=== PATIENT | male | born 1990 | race Caucasian/White ===

== ENCOUNTER 2018-08-26 01:33 | Emergency (ER) | payer SELFPAY ==
[~2018-08-26] VITALS: Ht 170.2 cm; Wt 77.1 kg
[2018-08-26 01:54] VITALS: BP 143/69
--- NOTE | 2018-08-26 03:58 | PHYS DOC ---
Adult General Chief Complaint Chief Complaint: PENIS PROBLEM HPI HPI Patient is a 28-year-old male who presents with complaint of painful ulceration to his penis for about the last 2 weeks. Patient does admit to unprotected sex. Patient states that the ulceration is not getting any better and he did a google search and was concerned about syphilis. He denies any fever, nausea or vomiting. He denies any painful urination and has had no urethral discharge. Review of Systems Review of Systems Constitutional: Denies fever or chills [] Respiratory: Denies cough or shortness of breath [] Cardiovascular: No additional information not addressed in HPI [] GI: Denies abdominal pain, nausea, vomiting or diarrhea [] : Denies dysuria or hematuria. Positive painful ulceration to penis [] Neurologic: Denies headache, focal weakness or sensory changes [] Current Medications Current Medications Current Medications Medications (Trade) Dose Ordered Sig/[place] Start Time Stop Time Status Last Admin Dose Admin Azithromycin (Zithromax) 1,000 mg 1X ONCE 08/26/18 03:30 08/26/18 03:31 DC Ceftriaxone Sodium (Rocephin Im) 250 mg 1X ONCE 08/26/18 03:30 08/26/18 03:31 DC Allergies Allergies Allergies Coded Allergies Type Severity Reaction Last Updated Verified No Known Drug Allergies 08/26/18 No Physical Exam Physical Exam Constitutional: Well developed, well nourished, no acute distress, non-toxic appearance. [] HENT: Normocephalic, atraumatic, bilateral external ears normal, oropharynx moist, no oral exudates, nose normal. [] Eyes: PERRLA, EOMI, conjunctiva normal, no discharge. [] Neck: Normal range of motion, no tenderness, supple, no stridor. [] Cardiovascular: Regular rate and rhythm[] Lungs & Thorax: Bilateral breath sounds clear to auscultation [] Abdomen: Bowel sounds normal, soft, no tenderness. [] : Inspection of penis demonstrates approximately 1 cm in diameter ulceration to the shaft of the penis at its base. Left groin demonstrates tender lymphadenopathy. [] Current Patient Data Lab Values Laboratory Tests Test 08/26/18 02:44 Treponema pallidum Antibody Nonreactive (Nonreactive) EKG EKG [] Radiology/Procedures Radiology/Procedures [] Course & Med Decision Making Course & Med Decision Making Pertinent Labs and Imaging studies reviewed. (See chart for details) [] Dragon Disclaimer Dragon Disclaimer This electronic medical record was generated, in whole or in part, using a voice recognition dictation system. Departure Departure Impression: Primary Impression: Chancroid in male Disposition: 01 HOME, SELF-CARE Condition: STABLE Referrals: NO PCP (PCP) Patient Instructions: Sexually Transmitted Disease DOMINGO SAEED Jr. DO Aug 26, 2018 03:58
[2018-08-26] MEDS: AZITHROMYCIN 250 MG TABLET. PO ONE (05:00)
[2018-08-26] MEDS: cefTRIAXone IM 250 MG VIAL IM ONE (05:00)
== END 2018-08-26 05:04 | disposition home or self-care (01) ==
LOC: ER 01:33
DX: A57 Chancroid (principal); R59.1 Generalized enlarged lymph nodes; N48.5 Ulcer of penis
CPT/HCPCS: 86592; 87070; 96372; 99283; J0696; Q0144; 36415; 87491; 87591